=== PATIENT | male | born 1965 | race Caucasian/White ===

== ENCOUNTER 2019-03-03 09:27 | Emergency (ER) | payer OTHER, BC ==
[2019-03-03 09:39] VITALS: BP 138/86; PULSE 76
[2019-03-03] MEDS ORDERED: Bacitracin Oint 1 GM U/D Packet TOP ONE (09:47)
[2019-03-03] MEDS ORDERED: Diphtheria,Pertussis(Acell),Tetanus Vaccine 0.5 ML SDV IM ONE (09:47)
--- NOTE | 2019-03-03 09:58 | EDM.PDOC ---
ED HPI GENERAL MEDICAL PROBLEM - General Chief Complaint: Laceration Stated Complaint: CUT ON TOP OF HEAD Time Seen by Provider: 03/03/19 09:40 Source of Information: Reports: Patient History Limitations: Reports: No Limitations - History of Present Illness INITIAL COMMENTS - FREE TEXT/NARRATIVE: ED ambulatory with c/o laceration to top of head from a bolt on sprayer . Stated hit head while at work. No loss of consciousness, Did not fall. Right Head Pain Score (Numeric/FACES): 4 - Related Data Allergies Allergy/AdvReac Type Severity Reaction Status Date / Time No Known Allergies Allergy Verified 03/03/19 09:41 Home Meds: Home Meds . [No Known Home Meds] 07/27/15 [History] Past Medical History HEENT History: Reports: Impaired Vision Other HEENT History: wears corrective lenses Cardiovascular History: Reports: None Respiratory History: Reports: None Gastrointestinal History: Reports: None Genitourinary History: Reports: None Musculoskeletal History: Reports: None Neurological History: Reports: None Psychiatric History: Reports: None Endocrine/Metabolic History: Reports: None Immunologic History: Reports: None Oncologic (Cancer) History: Reports: None Dermatologic History: Reports: None - Infectious Disease History Infectious Disease History: Reports: Chicken Pox - Past Surgical History Head Surgeries/Procedures: Reports: None Cardiovascular Surgical History: Reports: None GI Surgical History: Reports: Hernia, Inguinal, Hernia Repair/Other Male Surgical History: Reports: Vasectomy Musculoskeletal Surgical History: Reports: None Social & Family History - Family History Family Medical History: Noncontributory - Tobacco Use Smoking Status *Q: Never Smoker Second Hand Smoke Exposure: No - Caffeine Use Caffeine Use: Reports: Coffee, Soda - Recreational Drug Use Recreational Drug Use: No ED ROS GENERAL - Review of Systems Review Of Systems: Comprehensive ROS is negative, except as noted in HPI. ED EXAM, SKIN/RASH Exam: See Below Exam Limited By: No Limitations General Appearance: Alert, Anxious, Mild Distress Eye Exam: Bilateral Eye: EOMI, PERRL Ears: Normal External Exam Nose: Normal Inspection Throat/Mouth: Normal Inspection Head: Normocephalic. No: Atraumatic Neck: Normal Inspection, Full Range of Motion Respiratory/Chest: No Respiratory Distress, Lungs Clear Cardiovascular: Regular Rate, Rhythm GI/Abdominal: Soft Back Exam: Full Range of Motion Extremities: Normal Inspection Neurological: Alert, Oriented, Normal Cognition, Normal Gait, No Motor/Sensory Deficits Psychiatric: Anxious Skin: Warm, Wound/Incision (laceration right posterior parietal. 1.5 cm T shaped superficial ) Location, Skin: Head ED SKIN PROCEDURES - Laceration/Wound Repair Right Mid-Posterior [place] Appearance: Superficial Distal NVT: Neuro & Vascular Intact Skin Prep: Chlorhexidine (Hibiciens), Saline Exploration/Debridement/Repair: Wound Explored Closed with: [place] (x6) Lac/Wound length In cm: 1.5 Tetanus Status Addressed: Yes Complications: No Course - Vital Signs Last Recorded V/S: Last Vital Signs Temp 97 F 03/03/19 09:35 Pulse 76 03/03/19 09:35 Resp 18 03/03/19 09:35 BP 138/86 03/03/19 09:35 Pulse Ox 99 03/03/19 09:35 - Orders/Labs/Meds Meds: Medications Discontinued Medications Generic Name Dose Route Start Last Admin Trade Name Freq PRN Reason Stop Dose Admin Acetaminophen 650 mg 03/03/19 10:25 03/03/19 10:36 Tylenol PO 03/03/19 10:26 650 mg NOW ONE Administration Bacitracin 1 dose 03/03/19 09:47 03/03/19 10:00 Bacitracin Oint 1 Gm TOP 03/03/19 09:48 1 dose ONETIME ONE Administration Diphtheria/Tetanus/Acell Pertussis 0.5 ml 03/03/19 09:47 03/03/19 09:55 Adacel IM 03/03/19 09:48 0.5 ml .ONCE ONE Administration Lidocaine/Epinephrine 20 ml 03/03/19 09:47 03/03/19 10:34 Xylocaine 1% With Epinephrine 1:100,000 INJECT 03/03/19 09:48 Not Given ONETIME ONE Departure - Departure Time of Disposition: 10:22 Disposition: Home, Self-Care 01 Condition: Good Clinical Impression: Broken skin - Discharge Information *PRESCRIPTION DRUG MONITORING PROGRAM REVIEWED*: No *COPY OF PRESCRIPTION DRUG MONITORING REPORT IN PATIENT LISETTE: No Instructions: Stitches, Ronaldo, or Adhesive Wound Closure, [id number] Referrals: PCP,None [Primary Care Provider] - Forms: ED Department Discharge Additional Instructions: ronaldo out 10-14 days keep area clean and dry, may shower tomorrow morning tylenol or ibuprofen for discomfort may alternate every 4 hours as needed ice pack to scalp today 15minutes every 2 hours as needed follow up if redness drainage or swelling around wound Sepsis Event Note - Evaluation Sepsis Screening Result: No Definite Risk - Focused Exam Date Exam was Performed: 03/05/19 Time Exam was Performed: 02:57
[2019-03-03] MEDS: Lidocaine 1% with EPINEPHrine 1:100,000 20 ML MDV INJECT ONE ×2 (10:01→10:34)
[2019-03-03] MEDS ORDERED: Acetaminophen 325 MG Tab PO ONE (10:25)
== END 2019-03-03 10:40 | disposition home or self-care (01) ==
LOC: DL.ED 09:27
DX: S01.01XA Laceration without foreign body of scalp, initial encounter (principal); W22.8XXA Striking against or struck by other objects, initial encounter
CPT/HCPCS: 12001; 90471; 90715; 99282; A9270